=== PATIENT | female | born 1980 | race Caucasian/White ===

== ENCOUNTER 2022-03-10 05:32 | Emergency (ER) | payer BC ==
[~2022-03-10 05:32] MED LIST: BENTYL 10MG CAP10 MG PO; FLAGYL500 MG PO; ZOFRAN4 MG PO
[2022-03-10 05:54] LABS: HEMOGLOBIN 13.3 gm/dl (12.3-15.3); RED BLOOD COUNT 4.42 M/UL (4.00-5.10); WHITE BLOOD COUNT 8.6 K/UL (4.5-11.0)
[2022-03-10 06:16] LABS: BUN/CREATININE RATIO 20 (0-10)
== END 2022-03-10 11:27 | disposition home or self-care (01) ==
LOC: ER1 05:32
PROVIDERS: Emergency Medicine
DX: R07.9 Chest pain, unspecified (principal); R06.02 Shortness of breath
CPT/HCPCS: 71045; 76705; 80053; 82550; 82553; 83690; 84484; 84703; 85025; 85379; 93005; 99285